=== PATIENT | male | born 1945 | race Caucasian/White ===

== ENCOUNTER 2021-07-13 17:51 | Inpatient (IN) ==
[2021-07-13 19:36] LABS: proBNP 113.9 pg/mL (<450.0)
[2021-07-13] MEDS ORDERED: AZITHROMYCIN 500 MG in DEXTROSE 5% IN WATER 250 ML IV ONE (21:23)
[2021-07-13] MEDS ORDERED: predniSONE 20 MG TABLET PO ONE ×2 (21:24→21:26)
[2021-07-13] MEDS ORDERED: IPRATROPIUM/ALBUTEROL 3 ML AMPUL.NEB NEB ONE (21:24)
--- NOTE | 2021-07-13 22:05 | Internal Med History&Physical ---
HPI History of Present Illness Patient information: Note initiated : 07/13/21 at 9:56 pm Service Date, if different from initiated Date: [] Patient: Santos Salas a 76 y/o M admitted on for Shortness of Breath, Low Hgb?. Chief Complaint: [] History of present illness: Mr. Salas is a 76 year old M Who is developed cough and productive of green-yellow thick sputum and shortness of breath since Saturday. It is wax and wane but was so short of breath he went into urgent care today. They sent him to the ED. He was found to be hypoxic requiring several liters of oxygen. Patient denies fever chills. Had 3 Covid test today and a flu test that he said were negative. No other new complaints. He has chronic diarrhea from Crohn's and chronic abdominal discomfort from Crohn's. Review of Systems: Pertinent positive as above. Denies headache/fever/chills/nausea/vomiting/chest pain/diarrhea. 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) 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) Sacroiliitis (Chronic) Major depressive disorder (Chronic) Coronary artery disease (Chronic) Blister (Chronic) Jock itch (Chronic) Dysmetabolic syndrome X (Chronic) Androgen deficiency (Chronic) Lower leg edema (Chronic) Erythema of lower limb (Chronic) Lower leg pain (Chronic) Supraventricular tachycardia (Chronic) BPPV (benign paroxysmal positional vertigo) (Acute) Crohn's disease (regional enteritis) (Acute) Urolithiasis (Acute) Hydronephrosis (Acute) Diverticulitis (Acute) Medical History (Updated 07/13/21 @ 11:30 by Hayley Blewett, DO) Androgen deficiency Atherosclerotic heart disease of [place] coronary artery without angina pectoris Blister BPPV (benign paroxysmal positional vertigo) Cervical disc disorder with radiculopathy of cervical region Coronary artery disease Cough Crohn's disease involving terminal ileum Crohn's presenting with long segment stricture and SBO doesn't respond to medical management and operation is typically needed. 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 Surgical History History of bowel resection (08/11/15) History of cholecystectomy Open History of colonoscopy (03/20/21) History of hernia repair History of left knee surgery Family History Mother Bone cancer Father Skin cancer Social History marital status: occupational status: retired smoking status stop date: 07/08/03 alcohol intake frequency: a few times a month substance use type: does not use MEDS/ALLERGIES Home Medications and Allergies Home Medications Medication Instructions Recorded Confirmed Type lancets 33 gauge (BD Ultra Fine #100 each 03/08/20 07/13/21 Rx Lancets) blood sugar diagnostic (True #100 each 08/25/20 07/13/21 Rx Metrix Glucose Test Strip) diltiazem HCl 240 mg 240 mg PO QDAY #90 cap 11/04/20 07/13/21 Rx capsule,extended release 24 hr losartan 25 mg tablet 25 mg PO DAILY #90 tab 01/11/21 07/13/21 Rx metformin 500 mg tablet,extended 500 mg PO QDAY #90 tab 01/18/21 07/13/21 Rx release 24 hr cholestyramine (with sugar) 4 gram See Rx Instructions .ROUTE 05/12/21 07/13/21 Rx oral powder .COMPLEX #378 gram Allergies Allergy/AdvReac Type Severity Reaction Status Date / Time No Known Drug Allergies Allergy Verified 07/13/21 11:11 EXAM Constitutional Vitals: Temp Pulse Resp BP Pulse Ox 98.1 F 74 22 130/80 93 07/13/21 17:52 07/13/21 21:46 07/13/21 17:52 07/13/21 21:46 07/13/21 21:46 Exam: General: Alert, Awake, No acute Distress, obese Eyes/N/T: EOMI, PERRL, Head/Neck: neck supple, normocephalic atraumatic CV: RRR, No murmurs, normal s1/s2 Pulm: Rhonchi and occasional wheeze b/l, Abd: soft, nontender, +BS x4 Ext: no clubbing/cyanosis/edema Neuro: Alert, no focal deficits, moves all extremities, CN 2-12 grossly intact, symmetrical strength b/l upper/lower, sensations intact b/l upper/lower Skin: warm/dry DATA Data Completed and Pending Labs: Labs from last 24 hours 07/13/21 07/13/21 18:30 18:30 Troponin T < 0.01 NT-Pro-B Natriuret Pep 113.9 A/P Narrative A/P Narrative: A: *Severe b/l bronchitis 2/2 likely underlying COPD (former smoker): -CXR with hyperinflated lungs flattened diaphragm -CT with severe bilateral bronchitis -flu/covid neg *Acute hypoxic respiratory failure: -Patient has been on oxygen while in the hospital before for other things such as his Crohn's -on 2L NC *Crohn's: *HTN: Dilt/ARB *DM: Metformin -A1c P: -Steroids(wean) -Empiric antibiotics -IS/Acapella, nebs, RT -o2 supp, may need home O2 -Continue home BP meds -SSI -PT/OT -Home medication reconciliation -ppx: Lovenox DNR Time Spent With Patient Time: Total time spent is greater than 50% in coordination of care (as documented) at patient's floor/unit and/or counseling patient:
[2021-07-13] MEDS ORDERED: SENNOSIDES 1 TABLET PO PRN (23:45)
[2021-07-13] MEDS ORDERED: POTASSIUM CHLORIDE 40 MEQ in DEXTROSE 5% IN WATER 500 ML IV PRN (23:45)
[2021-07-13] MEDS ORDERED: DEXTROSE 31 GM ORAL.SUSP PO PRN (23:45)
[2021-07-13] MEDS ORDERED: POLYETHYLENE GLYCOL 3350 17 GM PACKET PO PRN (23:45)
[2021-07-13] MEDS ORDERED: ACETAMINOPHEN 325 MG TABLET PO PRN (23:45)
[2021-07-13] MEDS ORDERED: DEXTROSE 50% 50 ML VIAL IV PRN (23:45)
[2021-07-13] MEDS ORDERED: POTASSIUM CHLORIDE 20 MEQ TABLET PO PRN ×2 (23:45)
[2021-07-13] MEDS ORDERED: IPRATROPIUM/ALBUTEROL 3 ML AMPUL.NEB NEB PRN (23:45)
[2021-07-13] MEDS ORDERED: MAGNESIUM SULFATE 2 GM/50 ML BAG IV PRN (23:45)
[2021-07-13] MEDS ORDERED: ONDANSETRON 4 MG/2 ML VIAL IV PRN (23:45)
[2021-07-14] MEDS: AZITHROMYCIN 500 MG in DEXTROSE 5% IN WATER 250 ML IV SCH ×2 (00:54→22:26)
[2021-07-14] MEDS: IPRATROPIUM/ALBUTEROL 3 ML AMPUL.NEB NEB SCH ×4 (01:35→19:47)
--- NOTE | 2021-07-14 01:40 | Emergency Department Note ---
HPI General Chief complaint: Shortness of Breath/Dyspnea Stated complaint: Shortness of Breath, Low Hgb? Time Seen by Provider: 07/13/21 18:15 Source: patient Mode of arrival: ambulatory Limitations: no limitations History of Present Illness HPI Narrative: Narrative: 76-year-old male presenting to the ED for worsening shortness of breath and some hypoxia. He has been complaining of viral type symptoms since Saturday primarily a heavy cough with green-yellow sputum worsening. Is dyspneic worse with exertion. Was seen at the urgent care and was noted to be mildly hypoxic and was referred to the ER however he thought he could manage at home and went home however he worsened and is now here in the ER. Has had multiple negative COVID-19 test. No known history of chronic lung disease but used to smoke for a very long time although has quit. Denies any known history of heart failure denies any orthopnea or new leg swelling. No chest pain. Related Data Home Medications Medication Instructions Recorded Confirmed prednisone 10 mg tablet 10 mg PO DAILY 07/14/21 07/14/21 Previous Rx's Medication Instructions Recorded lancets 33 gauge (BD Ultra Fine #100 each 03/08/20 Lancets) blood sugar diagnostic (True #100 each 08/25/20 Metrix Glucose Test Strip) diltiazem HCl 240 mg 240 mg PO QDAY #90 cap 11/04/20 capsule,extended release 24 hr losartan 25 mg tablet 25 mg PO DAILY #90 tab 01/11/21 metformin 500 mg tablet,extended 500 mg PO QDAY #90 tab 01/18/21 release 24 hr cholestyramine (with sugar) 4 gram See Rx Instructions .ROUTE 05/12/21 oral powder .COMPLEX #378 gram Allergies Allergy/AdvReac Type Severity Reaction Status Date / Time No Known Drug Allergies Allergy Verified 07/13/21 11:11 Review of Systems ROS ROS Narrative: Narrative: At least 10 systems reviewed and otherwise acutely negative except as in the HPI PFSH Narrative Patient History Narrative: Narrative: Medical/Surgical/Family History All Active Problems (Updated 07/14/21 @ 01:46 by Archie Dc DO) Bronchitis (Acute) Hypoxic episode (Acute) Hypoxia (Acute) Cough (Acute) Partial small bowel obstruction (Chronic) UTI (urinary tract infection) (Chronic) Diabetes (Chronic) Crohn's disease involving terminal ileum (Chronic) Microscopic hematuria (Chronic) Testicular hypofunction (Chronic) Hyperlipidemia (Chronic) Essential hypertension (Chronic) 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) Low back pain (Chronic) 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) 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) Sacroiliitis (Chronic) Major depressive disorder (Chronic) Coronary artery disease (Chronic) Blister (Chronic) Jock itch (Chronic) Dysmetabolic syndrome X (Chronic) Androgen deficiency (Chronic) Lower leg edema (Chronic) Erythema of lower limb (Chronic) Lower leg pain (Chronic) Supraventricular tachycardia (Chronic) BPPV (benign paroxysmal positional vertigo) (Acute) Crohn's disease (regional enteritis) (Acute) Urolithiasis (Acute) Hydronephrosis (Acute) Diverticulitis (Acute) Medical History Androgen deficiency Atherosclerotic heart disease of [place] coronary artery without angina pectoris Blister BPPV (benign paroxysmal positional vertigo) Cervical disc disorder with radiculopathy of cervical region Coronary artery disease Cough Crohn's disease involving terminal ileum Crohn's presenting with long segment stricture and SBO doesn't respond to medical management and operation is typically needed. 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 Surgical History History of bowel resection (08/11/15) History of cholecystectomy Open History of colonoscopy (03/20/21) History of hernia repair History of left knee surgery Family History Mother Bone cancer Father Skin cancer Social History Smoking Status: Former smoker Alcohol Intake Frequency: a few times a month Substance Use: does not use Exam Narrative Narrative: Narrative: Constitutional: normally developed, no acute distress . Head: Normocephalic, atraumatic, Eyes: No Icterus, ENT: Moist mucus membranes, Neck: Supple, Cardiac: Normal heart sounds, palpable radial pulses, no peripheral edema Pulmonary: Nonlabored 1 to 2 L nasal cannula coarse breath sounds, no significant wheeze but does have rhonchi primarily on the right side. Heavy cough Gastrointestinal: Abdomen soft, non-distended, non-tender, Musculoskeletal: No gross deformities, well perfused Skin: warm, dry Neuro: Alert General Limitations: no limitations Course Vital Signs Vital signs: Vital Signs Temperature 36.7 C 07/13/21 17:52 Pulse Rate 84 07/13/21 17:52 Respiratory Rate 22 07/13/21 17:52 Blood Pressure 116/74 07/13/21 17:52 Pulse Oximetry (%) 93 07/13/21 17:52 Temperature 36.2 C 07/14/21 00:00 Pulse Rate 74 07/14/21 00:00 Respiratory Rate 18 07/14/21 00:00 Blood Pressure 136/72 07/14/21 00:00 Pulse Oximetry (%) 92 07/14/21 00:00 MDM MDM Narrative Medical decision making narrative: Narrative: Person with worsening dyspnea heavy productive cough currently being treated for clinical pneumonia although his x-ray earlier was mostly unremarkable was told to come to the ER when he was seen at urgent care because he was mildly hypoxic but felt well enough to go home now he is here in fact in the ED because he does not fact feel worse. Is given a DuoNeb, suspect a history of some chronic underlying lung disease as he was a long-term smoker does have a very heavy bronchitis type cough Twelve-lead EKG shows sinus rhythm with a right bundle branch block no acute ischemia CBC unremarkable reviewed labs from urgent care just couple hours ago CBC is unremarkable electrolytes unremarkable other than a glucose was mildly elevated 300 but normal renal function normal anion gap normal bicarb Did add on a troponin and BMP both of which were negative COVID test was negative earlier as well as flu Did order a CT of the chest as clinically he does have signs or symptoms suggestive of a pneumonia or bronchitis. Spoke with Dr. Shay who reports he has some pretty significant bilateral bronchitis with a lot of bronchial inflammation and there is some air trapping. On reevaluation patient feels improved but he is still requiring a bit of nasal cannula oxygenation 1 to 2 L. 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
[2021-07-14] MEDS: 0.9 % SODIUM CHLORIDE 10 ML SYRINGE IV SCH ×3 (05:10→22:26)
[2021-07-14] MEDS ORDERED: methylPREDNISolone SOD SUCC 125 MG/2 ML VIAL IV SCH (06:00)
[2021-07-14] MEDS: INSULIN LISPRO 1 UNIT/0.01 ML UNIT SQ SCH ×5 (07:45→22:25)
--- NOTE | 2021-07-14 07:53 | Cat Scan Report ---
History: Pulmonary congestion cough and shortness of breath TECHNIQUE: The chest was imaged without contrast in axial plane at 2.5 mm intervals. Sagittal, coronal and axial MIPS images were created. The radiation exposure was limited using dose reduction technology. FINDINGS: Moderate bronchitis is present in both lungs with the greatest involvement in the lower lobes. There is bronchial wall thickening. Some of the third order bronchi in both lower lobes are occluded by mucus plugging. There is no apparent pulmonary or endobronchial mass. There is no evidence of emphysema or pulmonary infiltrate. There are several bands of atelectasis or scar in the inferior segment of the lingula and medial segment of the right middle lobe. Some of these were present on a prior chest CT done on 05/25/14. No pleural effusion is present. There are no enlarged lymph nodes. Heart size is normal. Large amount calcified plaque is present in the coronary arteries. Aorta is normal in caliber. There is a stable low-attenuation nodule in the right adrenal which measures 2.0 cm. This was seen on a prior chest CT done on 05/25/14. IMPRESSION: Bronchitis with mucous plugging Dr. Dc was called with the report Interpreted and Authenticated by: Chuck Shay 07/14/21
--- NOTE | 2021-07-14 08:00 | EKG ---
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
--- NOTE | 2021-07-14 08:10 | Internal Med Progress Note ---
SUBJECTIVE Subjective Patient information: Note initiated : 07/14/21 at 8:07 am Service Date, if different from initiated Date: [] Patient: Santso Salas 76 y/o M admitted on 07/13/21 for Shortness of Breath, Low Hgb?. Chief Complaint: [] Interval history: Chief Complaint: [] History of present illness: Mr. Salas is a 76 year old M Who is developed cough and productive of green-yellow thick sputum and shortness of breath since Saturday. It is wax and wane but was so short of breath he went into urgent care today. They sent him to the ED. He was found to be hypoxic requiring several liters of oxygen. Patient denies fever chills. Had 3 Covid test today and a flu test that he said were negative. No other new complaints. He has chronic diarrhea from Crohn's and chronic abdominal discomfort from Crohn's. 07/14 Feeling better today. Still has cough. Shortness of breath minimal. On 1.5 L oxygen. Review of Systems: denies headache/fever/chills/nausea/vomiting/chest or abdominal pain/diarrhea. Otherwise see above. Constitutional Vitals: Vital Signs Temp Pulse Resp BP Pulse Ox 97.3 F 76 20 142/89 92 07/14/21 07:37 07/14/21 07:37 07/14/21 07:37 07/14/21 07:37 07/14/21 07:37 Period Temp Pulse Resp BP Sys/[place] Pulse Ox Last 24 Hr 97.1 F-98.1 F 72-86 18-22 107-142/72-89 90-100 Intake and Output 07/13/21 07/14/21 07/14/21 21:59 05:59 13:59 Intake Total 250 Output Total 1050 650 Balance -800 -650 Weight 104.326 kg 107.275 kg Intake & Output: Intake & Output 07/13/21 07/14/21 07/14/21 21:59 05:59 13:59 Intake Total 250 Output Total 1050 650 Balance -800 -650 Weight 104.326 kg 107.275 kg Intake: IV 250 Zithromax 500 mg In Dextrose 5% 250 in Water 250 ml @ 250 mls/hr IV ONCE ONE Rx#:[id number] Output: Void Amount 1050 650 Other: Urine Appearance Clear Clear Urine Color Dark Yellow Pale Urine Odor Normal Normal # Bowel Movements 1 Exam: General: Alert, Awake, No acute Distress, obese Eyes/N/T: EOMI, Head/Neck: neck supple, CV: RRR, No murmurs, Pulm: Rhonchi and occasional wheeze b/l improving, Abd: soft, nontender, +BS x4 Ext: no clubbing/cyanosis/edema Neuro: Alert, no focal deficits, moves all extremities, Skin: warm/dry OBJ DATA Labs Labs: Abnormal Lab Results 07/13/21 18:30 Hemoglobin A1c 8.0 H Meds: Medications Acetaminophen (Acetaminophen 325 Mg Tablet) 650 mg PO Q6HP PRN; Protocol PRN Reason: Per Pain Protocol/Fever > 101 Albuterol/Ipratropium (Ipratropium/Albuterol 3 Ml Ampul.Neb) 3 ml NEB Q6HRT [facility] Last Admin: 07/14/21 01:35 Dose: Not Given Documented by: Albuterol/Ipratropium (Ipratropium/Albuterol 3 Ml Ampul.Neb) 3 ml NEB Q4HP PRN PRN Reason: Shortness Of Breath Budesonide (Budesonide 0.5 Mg/2 Ml Ampul.Neb) 0.5 mg NEB Q12 [facility] Dextrose (Dextrose 50% 50 Ml Vial) 0 ml IV UD PRN PRN Reason: Hypoglycemia Diagnostic Test (Pha) (Accu-Chek 1 Each Strip) 1 each FS ACHS [facility] Last Admin: 07/14/21 07:30 Dose: 1 each Documented by: Docusate Sodium (Docusate Sodium 100 Mg Capsule) 100 mg PO BID [facility] Enoxaparin Sodium (Enoxaparin 40 Mg/0.4 Ml Syringe) 40 mg SQ DAILY [facility] Glucose (Dextrose 31 Gm Oral.Susp) 15 gm PO PRN PRN PRN Reason: Hypoglycemia Guaifenesin (Guaifenesin 600 Mg Tab.Sr.12h) 1,200 mg PO BID [facility] Stop: 07/15/21 09:01 Azithromycin 500 mg/ Dextrose 250 mls @ 250 mls/hr IV Q24H [facility]; Protocol Stop: 07/16/21 00:44 Last Admin: 07/14/21 00:54 Dose: Not Given Documented by: Potassium Chloride 40 meq/ (Dextrose) 520 mls @ 130 mls/hr IV UD PRN PRN Reason: Potassium < 3 Magnesium Sulfate (Magnesium Sulfate) 2 gm in 50 mls @ 50 mls/hr IV UD PRN PRN Reason: Magnesium </= 1.6 Insulin Human Lispro (Insulin Lispro 1 Unit/0.01 Ml Unit) 0 unit SQ ACHS [facility]; Protocol Last Admin: 07/14/21 07:45 Dose: 8 units Documented by: Methylprednisolone Sodium Succinate (Methylprednisolone Sod Succ 125 Mg/2 Ml Vial) 80 mg IV Q8 [facility] Last Admin: 07/14/21 05:10 Dose: 80 mg Documented by: Ondansetron HCl (Ondansetron 4 Mg/2 Ml Vial) 4 mg IV Q4HP PRN PRN Reason: Nausea And Vomiting Polyethylene Glycol (Polyethylene Glycol 3350 17 Gm Packet) 17 gm PO DAILYP PRN PRN Reason: Constipation Potassium Chloride (Potassium Chloride 20 Meq Tablet) 40 meq PO UD PRN PRN Reason: Potssium is 3-3.5 Potassium Chloride (Potassium Chloride 20 Meq Tablet) 40 meq PO UD PRN PRN Reason: Potassium < 3 Senna (Sennosides 1 Tablet) 2 tab PO DAILYP PRN PRN Reason: Constipation Sodium Chloride (0.9 % Sodium Chloride 10 Ml Syringe) 10 ml IV Q8 [facility] Last Admin: 07/14/21 05:10 Dose: 10 ml Documented by: A/P Narrative A/P Narrative: A: *Severe b/l bronchitis 2/2 likely underlying COPD (former smoker): -CXR with hyperinflated lungs flattened diaphragm -CT with severe bilateral bronchitis -flu/covid neg *Acute hypoxic respiratory failure: -Patient has been on oxygen while in the hospital before for other things such as his Crohn's -on 1.5L NC *Crohn's: *HTN: Dilt/ARB *DM: Metformin -A1c 8.0 P: -Steroids(wean) -Empiric antibiotics -IS/Acapella, nebs, RT -o2 supp wean as able, may need home O2 -Continue home BP meds -SSI -PT/OT -ppx: Lovenox DNR Time Spent With Patient Time: Total time spent is greater than 50% in coordination of care (as documented) at patient's floor/unit and/or counseling patient: QUALITY Stroke Symptom Onset Unknown: No VTE Deep Vein Thrombosis/Pulmonary Embolism Present on Admission: No
[2021-07-14] MEDS: BUDESONIDE 0.5 MG/2 ML AMPUL.NEB NEB SCH ×2 (08:36→19:44)
[2021-07-14] MEDS: LOSARTAN 25 MG TABLET PO SCH (09:49)
[2021-07-14] MEDS: DILTIAZEM 240 MG CAP.XL.24H PO SCH (09:49)
[2021-07-14] MEDS: guaiFENesin 600 MG TAB.SR.12H PO SCH ×2 (09:49→20:18)
[2021-07-14] MEDS: DOCUSATE SODIUM 100 MG CAPSULE PO SCH ×2 (09:50→20:19)
[2021-07-14] MEDS: ENOXAPARIN 40 MG/0.4 ML SYRINGE SQ SCH (09:54)
--- NOTE | 2021-07-14 14:30 | Internal Med Progress Note ---
SUBJECTIVE Subjective Patient information: Note initiated : 07/15/21 at 2:26 pm Service Date, if different from initiated Date: [] Patient: Santos Salas 76 y/o M admitted on 07/13/21 for Shortness of Breath, Low Hgb?. Chief Complaint: [] Interval history: Chief Complaint: [] History of present illness: Mr. Salas is a 76 year old male who developed a cough productive of green- yellow thick sputum and shortness of breath. Symptom onset was July 08. Symptoms waxed and waned, on the day of admission the patient presented to urgent care for shortness of breath and was sent to the ED. in the ED the patient was found to be hypoxic requiring several liters of oxygen. Patient denies fever chills. The patient tested negative for COVID multiple times, flu test was reportedly negative. CT chest revealed bronchitis with mucus plugging. 07/14 Feeling better today. Still has cough. Shortness of breath minimal. On 1.5 L oxygen. 07/16 Continues on 1.5 L/min oxygen, productive cough, afebrile. Transitioned to Levofloxacin and Prednisone. Review of Systems:feels tired, has a productive cough, afebrile. Physical Exam Head: Atraumatic, normal inspection. Eyes: normal appearance, no scleral icterus. Neck: full ROM Respiratory: bilateral ronchi and crackles. Cardiovascular: normal rate and rhythm, S1, S2. GI/Abdominal: soft, nontender, no guarding. Extremities: full range of motion, nontender. Neurological: CN II-XII intact, intact motor, intact sensation. Psychiatric: normal mood. Skin: warm, normal color Constitutional Vitals: Vital Signs Temp Pulse Resp BP Pulse Ox 97.3 F 76 20 142/89 92 07/14/21 07:37 07/14/21 13:56 07/14/21 13:56 07/14/21 07:37 07/14/21 08:41 Period Temp Pulse Resp BP Sys/[place] Pulse Ox Last 24 Hr 97.1 F-98.1 F 72-86 - 107-142/72-89 90-100 Intake and Output 07/14/21 07/14/21 07/14/21 05:59 13:59 21:59 Intake Total 250 300 Output Total 1050 650 Balance -800 -350 Weight 107.275 kg Intake & Output: Intake & Output 07/14/21 07/14/21 07/14/21 05:59 13:59 21:59 Intake Total 250 300 Output Total 1050 650 Balance -800 -350 Weight 107.275 kg Intake: IV 250 Zithromax 500 mg In Dextrose 5% 250 in Water 250 ml @ 250 mls/hr IV ONCE ONE Rx#:[id number] Oral 300 Output: Void Amount 1050 650 Other: Meal Breakfast Percent of Meal Consumed 100% Feeding Ability Independent Urine Appearance Clear Clear Urine Color Dark Yellow Bright Yellow Urine Odor Normal Normal Stool Size Moderate Stool Color Brown Stool Consistency Loose # Voids 1 # Bowel Movements 1 1 OBJ DATA Labs Labs: Abnormal Lab Results 07/13/21 18:30 Hemoglobin A1c 8.0 H Meds: Medications Acetaminophen (Acetaminophen 325 Mg Tablet) 650 mg PO Q6HP PRN; Protocol PRN Reason: Per Pain Protocol/Fever > 101 Albuterol/Ipratropium (Ipratropium/Albuterol 3 Ml Ampul.Neb) 3 ml NEB Q6HRT [facility] Last Admin: 07/14/21 13:54 Dose: 3 ml Documented by: Albuterol/Ipratropium (Ipratropium/Albuterol 3 Ml Ampul.Neb) 3 ml NEB Q4HP PRN PRN Reason: Shortness Of Breath Budesonide (Budesonide 0.5 Mg/2 Ml Ampul.Neb) 0.5 mg NEB Q12 [facility] Last Admin: 07/14/21 08:36 Dose: 0.5 mg Documented by: Cholestyramine Resin (Cholestyramine/Aspartame 4 Gm Powd.Pack) 4 gm PO BID@0700,1900 [facility] Dextrose (Dextrose 50% 50 Ml Vial) 0 ml IV UD PRN PRN Reason: Hypoglycemia Diagnostic Test (Pha) (Accu-Chek 1 Each Strip) 1 each FS ACHS [facility] Last Admin: 07/14/21 11:28 Dose: 1 each Documented by: Diltiazem HCl (Diltiazem 240 Mg Cap.Xl.24h) 240 mg PO QDAY [facility] Last Admin: 07/14/21 09:49 Dose: 240 mg Documented by: Docusate Sodium (Docusate Sodium 100 Mg Capsule) 100 mg PO BID [facility] Last Admin: 07/14/21 09:50 Dose: Not Given Documented by: Enoxaparin Sodium (Enoxaparin 40 Mg/0.4 Ml Syringe) 40 mg SQ DAILY [facility] Last Admin: 07/14/21 09:54 Dose: 40 mg Documented by: Glucose (Dextrose 31 Gm Oral.Susp) 15 gm PO PRN PRN PRN Reason: Hypoglycemia Guaifenesin (Guaifenesin 600 Mg Tab.Sr.12h) 1,200 mg PO BID [facility] Stop: 07/15/21 09:01 Last Admin: 07/14/21 09:49 Dose: 1,200 mg Documented by: Azithromycin 500 mg/ Dextrose 250 mls @ 250 mls/hr IV Q24H [facility]; Protocol Stop: 07/16/21 00:44 Last Admin: 07/14/21 00:54 Dose: Not Given Documented by: Potassium Chloride 40 meq/ (Dextrose) 520 mls @ 130 mls/hr IV UD PRN PRN Reason: Potassium < 3 Magnesium Sulfate (Magnesium Sulfate) 2 gm in 50 mls @ 50 mls/hr IV UD PRN PRN Reason: Magnesium </= 1.6 Insulin Human Lispro (Insulin Lispro 1 Unit/0.01 Ml Unit) 0 unit SQ ACHS [facility]; Protocol Last Admin: 07/14/21 11:40 Dose: 10 units Documented by: Losartan Potassium (Losartan 25 Mg Tablet) 25 mg PO DAILY [facility] Last Admin: 07/14/21 09:49 Dose: 25 mg Documented by: Methylprednisolone Sodium Succinate (Methylprednisolone Sod Succ 40 Mg/Ml Vial) 40 mg IV Q8 [facility] Ondansetron HCl (Ondansetron 4 Mg/2 Ml Vial) 4 mg IV Q4HP PRN PRN Reason: Nausea And Vomiting Polyethylene Glycol (Polyethylene Glycol 3350 17 Gm Packet) 17 gm PO DAILYP PRN PRN Reason: Constipation Potassium Chloride (Potassium Chloride 20 Meq Tablet) 40 meq PO UD PRN PRN Reason: Potssium is 3-3.5 Potassium Chloride (Potassium Chloride 20 Meq Tablet) 40 meq PO UD PRN PRN Reason: Potassium < 3 Senna (Sennosides 1 Tablet) 2 tab PO DAILYP PRN PRN Reason: Constipation Sodium Chloride (0.9 % Sodium Chloride 10 Ml Syringe) 10 ml IV Q8 [facility] Last Admin: 07/14/21 05:10 Dose: 10 ml Documented by: A/P Narrative A/P Narrative: A: *Severe b/l bronchitis 2/2 likely underlying COPD (former smoker): -CXR with hyperinflated lungs flattened diaphragm -CT with severe bilateral bronchitis -flu/covid neg *Acute hypoxic respiratory failure: -Patient has been on oxygen while in the hospital before for other things such as his Crohn's -on 1.5L NC *Crohn's disease: recently on steroid taper without Pneumocystis prophylaxis *HTN: Dilt/ARB *DM: Metformin -A1c 8.0 P: -Start Prednisone at prior taper dose and discontinued Solumedrol. -Levofloxacin PO daily, plan for 5 days of treatment. -IS/Acapella, nebs, RT -Oxygen supplementation as needed -Continue home BP meds -SSI -PT/OT -ppx: Lovenox DNR Time Spent With Patient Time: Total time spent is greater than 50% in coordination of care (as documented) at patient's floor/unit and/or counseling patient: QUALITY Stroke Symptom Onset Unknown: No VTE Deep Vein Thrombosis/Pulmonary Embolism Present on Admission: No
[2021-07-14] MEDS: methylPREDNISolone SOD SUCC 40 MG/ML VIAL IV SCH ×2 (15:41→22:26)
[2021-07-14] MEDS: CHOLESTYRAMINE/ASPARTAME 4 GM POWD.PACK PO SCH (21:24)
[2021-07-15] MEDS: IPRATROPIUM/ALBUTEROL 3 ML AMPUL.NEB NEB SCH ×4 (00:49→19:09)
[2021-07-15] MEDS: methylPREDNISolone SOD SUCC 40 MG/ML VIAL IV SCH (05:21)
[2021-07-15] MEDS: 0.9 % SODIUM CHLORIDE 10 ML SYRINGE IV SCH ×3 (05:21→20:49)
[2021-07-15] MEDS: guaiFENesin 600 MG TAB.SR.12H PO SCH (07:57)
[2021-07-15] MEDS: DILTIAZEM 240 MG CAP.XL.24H PO SCH (07:58)
[2021-07-15] MEDS: LOSARTAN 25 MG TABLET PO SCH (07:58)
[2021-07-15] MEDS: DOCUSATE SODIUM 100 MG CAPSULE PO SCH ×2 (07:59→20:39)
[2021-07-15] MEDS: INSULIN LISPRO 1 UNIT/0.01 ML UNIT SQ SCH ×4 (07:59→20:48)
[2021-07-15] MEDS: ENOXAPARIN 40 MG/0.4 ML SYRINGE SQ SCH (07:59)
[2021-07-15] MEDS: CHOLESTYRAMINE/ASPARTAME 4 GM POWD.PACK PO SCH ×2 (09:08→22:05)
[2021-07-15] MEDS: LEVOFLOXACIN 750 MG TABLET PO SCH (12:21)
[2021-07-15] MEDS: BUDESONIDE 0.5 MG/2 ML AMPUL.NEB NEB SCH ×2 (12:54→19:09)
[2021-07-16] MEDS: IPRATROPIUM/ALBUTEROL 3 ML AMPUL.NEB NEB SCH ×2 (01:01→07:02)
[2021-07-16] MEDS: 0.9 % SODIUM CHLORIDE 10 ML SYRINGE IV SCH (05:21)
[2021-07-16] MEDS: BUDESONIDE 0.5 MG/2 ML AMPUL.NEB NEB SCH (07:02)
[2021-07-16] MEDS ORDERED: predniSONE 10 MG TABLET PO SCH (08:00)
[2021-07-16] MEDS: LEVOFLOXACIN 750 MG TABLET PO SCH (08:21)
[2021-07-16] MEDS: DOCUSATE SODIUM 100 MG CAPSULE PO SCH (08:21)
[2021-07-16] MEDS: DILTIAZEM 240 MG CAP.XL.24H PO SCH (08:21)
[2021-07-16] MEDS: LOSARTAN 25 MG TABLET PO SCH (08:22)
[2021-07-16] MEDS: ENOXAPARIN 40 MG/0.4 ML SYRINGE SQ SCH (08:22)
[2021-07-16] MEDS: INSULIN LISPRO 1 UNIT/0.01 ML UNIT SQ SCH ×2 (08:22→12:03)
[2021-07-16] MEDS ORDERED: ALBUTEROL SULFATE 200 PUFF INHALER INH PRN (09:30)
--- NOTE | 2021-07-16 09:38 | Discharge Summary ---
Discharge Provider Provider Patient information: Note initiated : 07/16/21 at 9:34 am Service Date, if different from initiated Date: [] Patient: Santos Salas 76 y/o M admitted on 07/13/21 for Shortness of Breath, Low Hgb?. Chief Complaint: [] Date of admission: 07/13/21 23:45 Discharge date: 07/16/21 Primary care physician: Adrián Kim MD Consults: 07/13/21 Consult to Physician [CONS] Stat Comment: Consulting Provider: Joseph Langford Reason For Exam: Physician to Consult Discharge Meds Discharge Medications Home Medications lancets 33 gauge (BD Ultra Fine Lancets) #100 each 03/08/20 [Rx Confirmed 07/14/21 Last Taken Unknown] blood sugar diagnostic (True Metrix Glucose Test Strip) #100 each 08/25/20 [Rx Confirmed 07/14/21 Last Taken Unknown] diltiazem HCl 240 mg capsule,extended release 24 hr 240 mg PO QDAY #90 cap 11/04/20 [Rx Confirmed 07/14/21 Last Taken 07/13/21 09:00] losartan 25 mg tablet 25 mg PO DAILY #90 tab 01/11/21 [Rx Confirmed 07/14/21 Last Taken 07/13/21 09:00] metformin 500 mg tablet,extended release 24 hr 500 mg PO QDAY #90 tab 01/18/21 [Rx Confirmed 07/14/21 Last Taken 07/13/21 09:00] cholestyramine (with sugar) 4 gram oral powder See Rx Instructions .ROUTE .COMPLEX #378 gram 05/12/21 [Rx Confirmed 07/14/21 Last Taken 07/13/21 09:00] prednisone 10 mg tablet 10 mg PO DAILY 07/14/21 [History Confirmed 07/14/21 Last Taken 07/13/21 09:00] albuterol sulfate 90 mcg/actuation aerosol inhaler (Ventolin HFA) 2 puff INHALATION Q4HP PRN #8.5 g 07/16/21 [Rx Last Taken Unknown] levofloxacin 750 mg tablet 750 mg PO DAILY 4 Days #4 tab 07/16/21 [Rx Last Taken Unknown] COURSE Hospital Course Hospital course: Mr. Salas is a 76 year old male who developed a cough productive of green-ye llow thick sputum and shortness of breath. Symptom onset was July 08. Symptoms waxed and waned, on the day of admission the patient presented to urgent care for shortness of breath and was sent to the ED. in the ED the patient was found to be hypoxic requiring several liters of oxygen. Patient denies fever chills. The patient tested negative for COVID multiple times, flu test was reportedly negative. CT chest without contrast revealed bronchitis with mucus plugging. 07/14 Feeling better today. Still has cough. Shortness of breath minimal. On 1.5 L oxygen. 07/15 Continues on 1.5 L/min oxygen, productive cough, afebrile. Transitioned to Levofloxacin and Prednisone. 07/16 Weaned to room air. The patient feels better and wants to go home. Still has diffuse bilateral crackles and wheezes. Sputum culture result pending. Home oxygen evaluation ordered to evaluate for ambulatory hypoxia. Will discharge with a short course of Levofloxacin, Albuterol MDI prn, and continuation of prior prednisone taper which is currently at 10 mg daily. Follow up with PCP, if the patients symptoms have not significantly improve would consider pulmonary function testing and possibly pulmonary medicine evaluation. Physical Exam Head: Atraumatic, normal inspection. Eyes: normal appearance, no scleral icterus. Neck: full ROM Respiratory: bilateral ronchi and crackles. Cardiovascular: normal rate and rhythm, S1, S2. GI/Abdominal: soft, nontender, no guarding. Extremities: full range of motion, nontender. Neurological: CN II-XII intact, intact motor, intact sensation. Psychiatric: normal mood. Skin: warm, normal color Discharge diagnosis: Acute bronchitis Time Spent with Patient Time attestation: Total time spent providing and/or coordinating discharge services: EXAM Constitutional Vitals: Temp Pulse Resp BP Pulse Ox 97.8 F 81 14 145/82 92 07/16/21 07:21 07/16/21 07:21 07/16/21 07:21 07/16/21 07:21 07/16/21 07:21 Discharge Plan Patient/Caregiver Discharge Instructions Activity: increase activity as tolerated Diet: Consistent Carbohydrate Prescriptions: New albuterol sulfate [Ventolin HFA] 90 mcg/actuation Hfa Aerosol Inhaler 2 puff inhalation Q4HP PRN (Reason: Shortness Of Breath) Qty: 8.5 2RF levofloxacin 750 mg Tablet 750 mg PO DAILY 4 Days Qty: 4 0RF Continued (DME) lancets [BD Ultra Fine Lancets] 33 gauge misc See Rx Instructions .ROUTE .MEDSUPPLY Qty: 100 6RF Rx Instructions: As directed test blood glucose 4 times daily (DME) True Metrix Glucose Test Strip Strip See Rx Instructions .ROUTE .MEDSUPPLY Qty: 100 6RF Rx Instructions: As directed test blood sugar 4 times daily. diltiazem HCl 240 mg capsule,extended release 24hr 240 mg PO QDAY Qty: 90 4RF metformin 500 mg tablet extended release 24 hr 500 mg PO QDAY Qty: 90 4RF cholestyramine (with sugar) 4 gram powder See Rx Instructions .ROUTE .COMPLEX Qty: 378 2RF Dose Instruction: PLACE 4G WITH MEAL TWICE DAILY AND AVOID OTHER MEDICATIONS WITHIN 1 HOUR BEFORE AND 4-6 HOURS AFTER DOSE Rx Instructions: PLACE 4G WITH MEAL TWICE DAILY AND AVOID OTHER MEDICATIONS WITHIN 1 HOUR BEFORE AND 4-6 HOURS AFTER DOSE losartan 25 mg tablet 25 mg PO DAILY Qty: 90 4RF prednisone 10 mg tablet 10 mg PO DAILY 0RF Follow Up Plan Patient Disposition: Home, Self-Care Prognosis: Fair Overall status at discharge: patient is progressing back to baseline Discharge Orders: Discharge Order (Routine); Ordered 07/16/21 Ordered By: Luis CAIN VTE Deep Vein Thrombosis/Pulmonary Embolism Present on Admission: No
[2021-07-16] MEDS: CHOLESTYRAMINE/ASPARTAME 4 GM POWD.PACK PO SCH (10:04)
== END 2021-07-16 13:32 | disposition home or self-care (01) | DRG 202 ==
LOC: ED 17:51 → MEDSUR 23:45
PROVIDERS: ADMIT Internal Medicine; ATTEND Internal Medicine